=== PATIENT | male | born 1960 | race Caucasian/White ===

== ENCOUNTER 2018-07-11 00:22 | Emergency (ER) | payer OTHER ==
[~2018-07-11] VITALS: Ht 167.6 cm; Wt 68.2 kg
[2018-07-11] MEDS ORDERED: ACETAMINOPHEN 325 MG TABLET PO ONE (03:00)
[2018-07-11] MEDS ORDERED: SULFAMETHOX/TRIMETH DS 800-160 MG/TABLET PO ONE (03:30)
[2018-07-11] MEDS ORDERED: CEPHALEXIN MONOHYDRATE 500 MG CAPSULE PO ONE (03:30)
[2018-07-11 03:38] VITALS: BP 133/88
== END 2018-07-11 03:52 | disposition home or self-care (01) ==
LOC: EMS 00:24
DX: L03.211 Cellulitis of face (principal); F17.210 Nicotine dependence, cigarettes, uncomplicated
CPT/HCPCS: 99284

== ENCOUNTER 2020-04-19 03:48 | Emergency (ER) | payer OTHER ==
[~2020-04-19] VITALS: Ht 167.6 cm; Wt 59.1 kg
[2020-04-19 04:17] VITALS: BP 155/93
[2020-04-19] MEDS ORDERED: ONDANSETRON HCL 4 MG TABLET PO ONE (05:45)
== END 2020-04-19 07:00 | disposition home or self-care (01) ==
LOC: EMS 03:48
DX: L01.00 Impetigo, unspecified (principal); R11.0 Nausea; F17.210 Nicotine dependence, cigarettes, uncomplicated; Z59.0 Homelessness
CPT/HCPCS: 99283; Q0162